=== PATIENT | female | born 1960 | race Caucasian/White ===

== ENCOUNTER 2022-03-01 13:29 | Emergency (ER) | payer OTHER ==
[2022-03-01 13:45] VITALS: BP 146/76; PULSE 56; RESP 20; TEMP 97.8; BMI 34.0
[2022-03-01] MEDS ORDERED: LORazepam 2 MG/ML SDV VIAL IVPUSH ONE (14:04)
[2022-03-01] MEDS ORDERED: SODIUM CHLORIDE 0.9% 1000 ML INFUS.BAG IV ONE (14:05)
== END 2022-03-01 15:55 | disposition home or self-care (01) ==
LOC: JER 13:29
PROC: 3E033GC Introduction of Other Therapeutic Substance into Peripheral Vein, Percutaneous Approach (ICD-10-PCS; principal; 2022-03-01)
DX: R42 Dizziness and giddiness (principal); J32.3 Chronic sphenoidal sinusitis
CPT/HCPCS: 70450-TC; 99285-25